=== PATIENT | male | born 1960 | race Caucasian/White ===

== ENCOUNTER 2024-05-30 07:44 | Emergency (ER) | payer OTHER ==
[~2024-05-30] VITALS: Ht 165.1 cm; Wt 77.1 kg
[~2024-05-30 07:44] MED LIST: Aspirin EC81 MG PO; Augmentin 875-1 EACH PO; CLIN300 PO; Cleocin HCl150 MG PO; LISI20 PO; METO50 PO; Percocet 5-3251 EACH PO; SULTRISS PO; [UNRECOGNIZED DRUG - REMARK]
[2024-05-30 07:51] VITALS: BP 168/87
== END 2024-05-30 10:23 | disposition home or self-care (01) ==
LOC: ER 07:44
DX: S61.411A Laceration without foreign body of right hand, initial encounter (principal); I10 Essential (primary) hypertension; F17.220 Nicotine dependence, chewing tobacco, uncomplicated; W01.0XXA Fall on same level from slipping, tripping and stumbling without subsequent striking against object, initial encounter; Z79.82 Long term (current) use of aspirin; Z79.899 Other long term (current) drug therapy
CPT/HCPCS: 12002; 99283-25